=== PATIENT | female | born 1965 | race Caucasian/White ===

== ENCOUNTER → 2023-12-27 07:43 | Outpatient (REF) | payer OTHER, SELFPAY | LOC: WDC 07:43 | PROVIDERS: ATTENDING PHYSICIAN Obstetrics & Gynecology; FAMILY PHYSICIAN Internal Medicine | DX: Z12.31 Encounter for screening mammogram for malignant neoplasm of breast (principal) | CPT/HCPCS: 77063; 77067 ==

== ENCOUNTER → 2024-01-02 08:46 | Outpatient (REF) | payer OTHER, SELFPAY | LOC: WDC 08:46 | PROVIDERS: ATTENDING PHYSICIAN Obstetrics & Gynecology; FAMILY PHYSICIAN Internal Medicine | DX: R92.8 Other abnormal and inconclusive findings on diagnostic imaging of breast (principal) | CPT/HCPCS: 76642 ==

== ENCOUNTER → 2024-01-04 10:58 | Outpatient (REF) | payer OTHER, SELFPAY ==
--- NOTE | 2024-01-04 13:37 | OID.BR.INTR ---
[facility] Breast Navigator - Initial
- -
Date of Contact: 01/04/24
Met with patient. Patient given written information on navigator services and support services available at [facility]. Will follow up as needed per protocol.
== END ==
LOC: WDC 10:58
PROVIDERS: ATTENDING PHYSICIAN Obstetrics & Gynecology; FAMILY PHYSICIAN Internal Medicine
DX: N63.13 Unspecified lump in the right breast, lower outer quadrant (principal)
CPT/HCPCS: 88305; 19083; 77065; 88342; A4648

== ENCOUNTER → 2025-01-02 12:09 | Outpatient (REF) | payer OTHER, SELFPAY | LOC: WDC 12:09 | PROVIDERS: ATTENDING PHYSICIAN Obstetrics & Gynecology; FAMILY PHYSICIAN Internal Medicine | DX: Z12.31 Encounter for screening mammogram for malignant neoplasm of breast (principal) | CPT/HCPCS: 77063; 77067 ==

== ENCOUNTER → 2025-01-09 08:18 | Outpatient (REF) | payer OTHER, SELFPAY | LOC: WDC 08:18 | PROVIDERS: ATTENDING PHYSICIAN Obstetrics & Gynecology; FAMILY PHYSICIAN Internal Medicine | DX: R92.8 Other abnormal and inconclusive findings on diagnostic imaging of breast (principal) | CPT/HCPCS: 76642 ==

== ENCOUNTER → 2025-07-10 07:43 | Outpatient (REF) | payer OTHER, SELFPAY | LOC: WDC 07:43 | PROVIDERS: ATTENDING PHYSICIAN Surgery; FAMILY PHYSICIAN Physician Assistant | DX: R92.8 Other abnormal and inconclusive findings on diagnostic imaging of breast (principal) | CPT/HCPCS: 76642 ==

== ENCOUNTER → 2025-09-01 08:21 | Outpatient (REF) | payer OTHER, SELFPAY | LOC: WDC 08:21 | PROVIDERS: ATTENDING PHYSICIAN Surgery; FAMILY PHYSICIAN Internal Medicine | DX: N63.14 Unspecified lump in the right breast, lower inner quadrant (principal) | CPT/HCPCS: 19285; A4648 ==

== ENCOUNTER 2025-09-02 06:22 | Day surgery (SDC) | payer OTHER, SELFPAY ==
[2025-08-29 12:20] LABS: Prealbumin (Transthyretin) 22.4 mg/dl (17.6-36.0)
[2025-09-02 08:19] VITALS: BP 122/71
[2025-09-02] MEDS: TYLENOL 1000 MG PO (08:20)
[2025-09-02] MEDS: NORMOSOL-R/PLASMALYTE-A 1000 IV (08:22)
[2025-09-02 10:23] VITALS: BP 102/66
[2025-09-02 10:30] VITALS: BP 103/59
[2025-09-02 10:45] VITALS: BP 112/67
--- NOTE | 2025-09-02 13:00 | W.IMMPOSTOP ---
Surgical Immed Post Op Note
-
Primary Surgeon: Yumiko
Assisting Surgeon: None
Pre-op Diagnosis: fibroepithelial lesion
Post-op Diagnosis: same
Procedure Performed: right localized lumpectomy
Anesthesia Type: TIVA
Specimen / Cultures: right lmpectomy and margins
Estimated Blood Loss: 6cc
Complications: none
Operative Findings: mass, clip and reflector are in specimen
--- NOTE | 2025-09-02 13:04 | OR.RPT ---
Operative Report
Operative Report
Date of procedure: 09/02/2025
Surgeon: Yumiko
Preoperative diagnosis: Fibroepithelial lesion right breast
Postoperative diagnosis: Same
Procedure right localized lumpectomy
Patient is a 60-year-old female with undergone an ultrasound-guided core biopsy of the solid right breast showing fibroepithelial lesion. On follow-up this lesion grew and she presents for lumpectomy. On the day prior to the procedure the patient
presented to the [facility] where Brandie heel emery buffer reflector was placed at the tumor site. On the date of the surgery the patient presented to the same-day surgical services unit. She was prepped and verified site and procedure. DVT
antibiotic prophylaxis were provided. She was transferred to the operating room.
In the supine position intravenous sedation was delivered. The right breast was prepped and draped in the usual sterile fashion. Was difficult to hear the Brandie reflector therefore an intraoperative ultrasound was performed to verify the location
of the lesion. Appropriate timeout was performed by all team members. All tissues were anesthetized with 1% lidocaine plain.
Curvilinear incision was made overlying the area where the mass was located. Dissection was carried down to it using the cautery. A wide lumpectomy was performed using the cautery. Time out of body was noted and the specimen was oriented for the
pathologist. There was a strong Brandie signal within it. Specimen radiography confirmed the presence of mass, clip, and Brandie reflector within it. Additional margins were harvested from the following dimensions and oriented. Posterior, medial,
superior, lateral, inferior, and anterior dimensions. Hemostasis was maintained with the cautery. Marcaine 0.5% plain was instilled and the wound was closed using simple interrupted 3-0 plain on deep intermediate and subcutaneous tissue and skin
was closed with a running subcuticular 4-0 Biosyn. A few simple interrupted sutures were placed for extra support.
Surgical glue and a sterile compressive dressing were applied. All sponge needle and instrument counts were correct and the patient was transferred back to same-day surgical services for recovery.
([id number])
== END 2025-09-02 11:20 | disposition home or self-care (01) ==
LOC: SDS 06:22
PROVIDERS: ATTENDING PHYSICIAN Surgery; FAMILY PHYSICIAN Internal Medicine
DX: D24.1 Benign neoplasm of right breast (principal); N63.10 Unspecified lump in the right breast, unspecified quadrant
CPT/HCPCS: 19301; 36415; 76098; 82652; 84134; 88305; 88307; 93005